=== PATIENT | female | born 1970 | race Caucasian/White ===

== ENCOUNTER 2016-08-07 11:02 | Emergency (ER) | payer OTHER ==
[2016-08-07] MEDS ORDERED: Aspirin Low Dose CHEW TAB* 81 MG PO ONE (12:06)
[2016-08-07] MEDS ORDERED: Acetaminophen TAB* 325 MG PO ONE (12:06)
[2016-08-07 12:42] LABS: Hematocrit 40 % (35-47); Hemoglobin 13.2 g/dl (12.0-16.0); Mean Corpuscular HGB Conc 33 g/dl (31-36); Mean Corpuscular Hemoglobin 31 pg (27-31); Mean Corpuscular Volume 95 fL (80-97); Mean Platelet Volume 8 um3 (7.4-10.4); Red Blood Count 4.21 10^6/ul (4.0-5.4); Red Cell Distribution Width 14 % (10.5-15)
--- NOTE | 2016-08-07 12:47 | RAD ---
HISTORY: Chest pain, shortness breath, pneumonia, CHF COMPARISONS: None VIEWS: 2: Frontal dual-energy and lateral views of the chest. FINDINGS: CARDIOMEDIASTINAL SILHOUETTE: The cardiomediastinal silhouette is normal. AYAKA: The ayaka are normal. PLEURA: The costophrenic angles are sharp. No pleural abnormalities are noted. LUNG PARENCHYMA: There is hyperinflation with flattening of the diaphragm and expansion of the retrosternal airspace. ABDOMEN: The upper abdomen is clear. There is no subphrenic gas. BONES AND SOFT TISSUES: No bone or soft tissue abnormalities are noted. OTHER: None. IMPRESSION: HYPERINFLATION WHICH CAN BE SEEN WITH REACTIVE AIRWAY DISEASE OR COPD. NO ACTIVE CARDIOPULMONARY DISEASE
[2016-08-07 12:58] LABS: Albumin 4.3 g/dL (3.2-5.2); BUN/Creatinine Ratio 18.3 (8-20); Calcium 9.4 mg/dL (8.6-10.3); EGFR African American 139.7 (>60); EGFR Non-African American 108.6 (>60); Globulin 2.4 g/dL (2-4); Potassium 4.3 mmol/L (3.5-5.0); Total Bilirubin 0.3 mg/dL (0.2-1.0); Total Protein 6.7 g/dL (6.4-8.9)
[2016-08-07 14:17] VITALS: BP 122/70
--- NOTE | 2016-08-07 15:31 | ED ---
Lolis Nagel Matthew, scribed for Hans Peralta MD on 08/07/16 at 1208 . HPI Chest Pain - HPI Summary HPI Summary: A 46 y/o female presents to the ED with constant left lateral chest pain since 2 days ago. The pain worsened today, which prompted the patient to present to the ED. The pain is rated 7/10 in severity, described as heaviness, and radiates into the left arm. The pain started while the patient was at work. Associated symptoms include headache, left shoulder, left arm pain, and fatigue. The patient denies slurred speech, weakness, pedal edema, LE pain, calf pain, back pain, neck pain, and recent travel. The pain is unaffected by food, deep breaths, position, and exertion. The patient has taken ibuprofen without relief. - History of Current Complaint Chief Complaint: EDChestPainROMI Time Seen by Provider: 08/07/16 11:49 Hx Obtained From: Patient Onset/Duration: Started Days Ago, Atraumatic, Still Present Timing: Constant Initial Severity: Moderate Current Severity: Moderate Pain Intensity: 7 Pain Scale Used: 0-10 Numeric Chest Pain Location: Left Lateral Chest Pain Radiates: Yes Chest Pain Radiates To:: Shoulder - LT, Arm - LT Character: Heaviness Aggravating Factor(s): Nothing Alleviating Factor(s): Nothing Associated Signs and Symptoms: Positive: Chest Pain, Other: - Fatigue, Left sided arm and shoulder pain. Negative: Weakness, Back Pain, Calf Pain/Swelling , Edema - Allergy/Home Medications Allergies/Adverse Reactions: Allergies Allergy/AdvReac Type Severity Reaction Status Date / Time Sulfa Antibiotics Allergy Hives Verified 11/20/12 07:50 PMH/Surg Hx/FS Hx/Imm Hx Endocrine/Hematology History: Denies: Hx Diabetes Cardiovascular History: Denies: Hx Pacemaker/ICD Musculoskeletal History: Denies: Hx Back Problems Sensory History: Denies: Hx Hearing Aid Psychiatric History: Denies: Hx Panic Disorder - Surgical History Surgery Procedure, Year, and Place: TUBAL LIGATION 1995 Infectious Disease History: No Infectious Disease History: Denies: Traveled Outside the [place] in Last 30 Days - Family History Known Family History: Positive: Cardiac Disease - mother, Diabetes, Other - CVA - Social History Alcohol Use: Occasionally Substance Use Type: Reports: None Smoking Status (MU): Former Smoker Type: Cigarettes Review of Systems Positive: Fatigue Eyes: Negative ENT: Negative Positive: Chest Pain - left lateral Respiratory: Negative Gastrointestinal: Negative Genitourinary: Negative Positive: Myalgia - Raditing chest pain into the left shoulder and arm; NO neck pain; NO back pain. Negative: Edema - pedal Skin: Negative Positive: Headache. Negative: Weakness Psychological: Normal All Other Systems Reviewed And Are Negative: Yes Physical Exam - Summary Physical Exam Summary: The patient is well-nourished in no acute distress and in no acute pain. The skin is warm and dry and skin color reflects adequate perfusion. HEENT: The head is normocephalic and atraumatic. The pupils are equal and reactive. The conjunctivae are clear and without drainage. Nares are patent and without drainage. Mouth reveals moist mucous membranes and the throat is without erythema and exudate. The external ears are intact. The ear canals are patent and without drainage. The tympanic membranes are intact. Neck is supple with full range of motion and non-tender. There are no carotid bruits. There is no neck vein distension. Respiratory: Chest is non-tender w/ no reproducible pain. Lungs are clear to auscultation and breath sounds are symmetrical and equal. Cardiovascular: Hear is regular rate and rhythm. There is no murmur or rub auscultated. There is no peripheral edema and pulses are symmetrical and equal. Abdomen: The abdomen is soft and non-tender. There are normal bowel sounds heard in all four quadrants and there is no organomegaly palpated. Musculoskeletal: There is no back pain noted. Extremities are non-tender with full range of motion. There is good capillary refill. There is no peripheral edema or calf tenderness elicited. No reproducible neck or shoulder tenderness. Neurological: Patient is alert and oriented to person, place and time. The patient has symmetrical motor strength in all four extremities. Cranial nerves are grossly intact. Deep tendon reflexes are symmetrical and equal in all four extremities. Psychiatric: The patient has a flat affect. Triage Information Reviewed: Yes Vital Signs On Initial Exam: Initial Vitals Temp Pulse Resp BP Pulse Ox 98.0 F 108 20 111/79 100 08/07/16 11:04 08/07/16 11:04 08/07/16 11:04 08/07/16 11:04 08/07/16 11:04 Vital Signs Reviewed: Yes - [place] Coma Scale Coma Scale Total: 15 Diagnostics - Vital Signs Vital Signs Temp Pulse Resp BP Pulse Ox 08/07/16 11:33 95 12 100 08/07/16 11:32 115/69 08/07/16 11:04 98.0 F 108 20 111/79 100 - Laboratory Lab Results: Lab Results 08/07/16 08/07/16 08/07/16 Range/Units 12:30 12:30 12:30 WBC 10.0 (3.5-10.8) 10^3/ul RBC 4.21 (4.0-5.4) 10^6/ul Hgb 13.2 (12.0-16.0) g/dl Hct 40 (35-47) % MCV 95 (80-97) fL MCH 31 (27-31) pg MCHC 33 (31-36) g/dl RDW 14 (10.5-15) % Plt Count 368 (150-450) 10^3/ul MPV 8 (7.4-10.4) um3 Neut % (Auto) 63.7 (38-83) % Lymph % (Auto) 25.4 (25-47) % Catron % (Auto) 6.6 (1-9) % Eos % (Auto) 3.7 (0-6) % Baso % (Auto) 0.6 (0-2) % Absolute Neuts (auto) 6.4 (1.5-7.7) 10^3/ul Absolute Lymphs (auto) 2.5 (1.0-4.8) 10^3/ul Absolute Monos (auto) 0.7 (0-0.8) 10^3/ul Absolute Eos (auto) 0.4 (0-0.6) 10^3/ul Absolute Basos (auto) 0.1 (0-0.2) 10^3/ul Absolute Nucleated RBC 0.01 10^3/ul Nucleated RBC % 0.1 D-Dimer, Quantitative < 200 (Less Than 230) ng/mL Sodium 138 (133-145) mmol/L Potassium 4.3 (3.5-5.0) mmol/L Chloride 105 (101-111) mmol/L Carbon Dioxide 28 (22-32) mmol/L Anion Gap 5 (2-11) mmol/L BUN 11 (6-24) mg/dL Creatinine 0.60 (0.51-0.95) mg/dL Est GFR ( Amer) 139.7 (>60) Est GFR (Non-Af Amer) 108.6 (>60) BUN/Creatinine Ratio 18.3 (8-20) Glucose 94 (70-100) mg/dL Lactic Acid (0.5-2.0) mmol/L Calcium 9.4 (8.6-10.3) mg/dL Total Bilirubin 0.30 (0.2-1.0) mg/dL AST 17 (13-39) U/L ALT 13 (7-52) U/L Alkaline Phosphatase 59 (34-104) U/L Troponin I 0.00 (<0.04) ng/mL B-Natriuretic Peptide ( - 100) pg/mL Total Protein 6.7 (6.4-8.9) g/dL Albumin 4.3 (3.2-5.2) g/dL Globulin 2.4 (2-4) g/dL Albumin/Globulin Ratio 1.8 (1-3) 08/07/16 08/07/16 Range/Units 12:30 12:30 WBC (3.5-10.8) 10^3/ul RBC (4.0-5.4) 10^6/ul Hgb (12.0-16.0) g/dl Hct (35-47) % MCV (80-97) fL MCH (27-31) pg MCHC (31-36) g/dl RDW (10.5-15) % Plt Count (150-450) 10^3/ul MPV (7.4-10.4) um3 Neut % (Auto) (38-83) % Lymph % (Auto) (25-47) % Catron % (Auto) (1-9) % Eos % (Auto) (0-6) % Baso % (Auto) (0-2) % Absolute Neuts (auto) (1.5-7.7) 10^3/ul Absolute Lymphs (auto) (1.0-4.8) 10^3/ul Absolute Monos (auto) (0-0.8) 10^3/ul Absolute Eos (auto) (0-0.6) 10^3/ul Absolute Basos (auto) (0-0.2) 10^3/ul Absolute Nucleated RBC 10^3/ul Nucleated RBC % D-Dimer, Quantitative (Less Than 230) ng/mL Sodium (133-145) mmol/L Potassium (3.5-5.0) mmol/L Chloride (101-111) mmol/L Carbon Dioxide (22-32) mmol/L Anion Gap (2-11) mmol/L BUN (6-24) mg/dL Creatinine (0.51-0.95) mg/dL Est GFR ( Amer) (>60) Est GFR (Non-Af Amer) (>60) BUN/Creatinine Ratio (8-20) Glucose (70-100) mg/dL Lactic Acid 1.1 (0.5-2.0) mmol/L Calcium (8.6-10.3) mg/dL Total Bilirubin (0.2-1.0) mg/dL AST (13-39) U/L ALT (7-52) U/L Alkaline Phosphatase (34-104) U/L Troponin I (<0.04) ng/mL B-Natriuretic Peptide 24 ( - 100) pg/mL Total Protein (6.4-8.9) g/dL Albumin (3.2-5.2) g/dL Globulin (2-4) g/dL Albumin/Globulin Ratio (1-3) Result Diagrams: 08/07/16 12:30 08/07/16 12:30 Lab Statement: Any lab studies that have been ordered have been reviewed, and results considered in the medical decision making process. - Radiology CXR Xray Interpretation: No Acute Changes - IMPRESSION: HYPERINFLATION WHICH CAN BE SEEN WITH REACTIVE AIRWAY DISEASE OR COPD. NO ACTIVE CARDIOPULMONARY DISEASE Radiology Interpretation Completed By: Radiologist - EKG 11:06 Cardiac Rate: Tachycardia - 99 bpm EKG Rhythm: Sinus Tachycardia EKG Interpretation: Poor R Wave Progression Re-Evaluation - Re-Evaluation First Eval Re-Evaluation Time: 13:40 Comment: Reviewed the lab and CXR results with the patient. After discussing the treatment plan with the patient, she decided that she did not want to be admitted to the hospital and would rather have an outpatient work-up. Chest Pain Course/Dx - Course Assessment/Plan: A 46 y/o female presents to the ED with constant left lateral chest pain since 2 days ago. The pain is unaffected by food, deep breaths, position and exertion. Labs were reviewed and her troponin was 0.00. CXR shows no active cardiopulmonary disease. EKG shows sinus tachycardia at 99 bpm w/ poor R wave progression. The patient did not want to be admitted to the hospital and would rather have an outpatient work-up. She agreed to follow-up with Dr. Contreras and she will also consider an outpatient echocardiogram and stress test. The patient will be discharged home and follow-up with Dr. Contreras for further management. - Chest Pain Differential Diagnosis/HQI/PQRI: Acute [place], ACS, Angina, Chest Wall, Pulmonary Embolism - Diagnoses Provider Diagnoses: Chest pain Discharge - Discharge Plan Condition: Stable Disposition: HOME Patient Education Materials: Chest Pain (ED) Forms: *Work Release Referrals: Tawanda Contreras DO [Primary Care Provider] - 1 Day Additional Instructions: Please follow-up with Dr. Contreras. Also please take an aspirin daily and consider an outpatient echocardiogram and stress test. The documentation as recorded by the Lolis hughes Matthew accurately reflects the service I personally performed and the decisions made by , Hans Peralta MD.
== END 2016-08-07 14:15 | disposition home or self-care (01) ==
LOC: ED 11:02
DX: R07.9 Chest pain, unspecified (principal); M25.512 Pain in left shoulder; M79.602 Pain in left arm; Z87.891 Personal history of nicotine dependence; R51 Headache
CPT/HCPCS: 36415; 71020; 80053; 83605; 83880; 84484; 85025; 85379; 93005; 99283; A9270-GY